=== PATIENT | male | born 1965 | race African-American/Black ===

== ENCOUNTER 2019-03-08 13:36 | Emergency (ER) | payer MEDICAID ==
[~2019-03-08] VITALS: Ht 172.7 cm; Wt 80.0 kg
[2019-03-08 14:23] VITALS: BP 141/101
== END 2019-03-08 18:56 | disposition left against medical advice (07) ==
LOC: ER 13:36
DX: Z53.21 Procedure and treatment not carried out due to patient leaving prior to being seen by health care provider (principal)